=== PATIENT | female | born 1955 | race Caucasian/White ===

== ENCOUNTER 2019-06-05 07:29 | Day surgery (SDC) | payer MEDICARE, MEDICAID ==
[2019-06-03 17:03] LABS: BASOPHILS % (AUTO) 0.6 % (0-1); EOSINOPHILS # (AUTO) 0.1 X10'3 (0-0.9); EOSINOPHILS % (AUTO) 2.2 % (0-6); HEMATOCRIT 40.2 % (35.0-45.0); HEMOGLOBIN 13.8 g/dl (12.0-16.0); LYMPHOCYTES # (AUTO) 1.7 X10'3 (1.1-4.8); LYMPHOCYTES % (AUTO) 25.4 % (21-51); MEAN CORPUSCULAR HEMOGLOBIN 30.8 PG (27.0-31.0); MEAN CORPUSCULAR HGB CONC 34.4 g/dL (33.0-36.5); MEAN CORPUSCULAR VOLUME 89.5 FL (78-98); MEAN PLATELET VOLUME 8.4 FL (7.4-10.4); MONOCYTES # (AUTO) 0.6 X10'3 (0-0.9); MONOCYTES % (AUTO) 8.5 % (2-12); NEUTROPHILS # (AUTO) 4.1 X10'3 (1.8-7.7); NEUTROPHILS % (AUTO) 63.3 % (42-75); PLATELET COUNT 256 X10'3 (140-440); RED BLOOD COUNT 4.49 X10'6 (4.20-5.60); RED CELL DISTRIBUTION WIDTH 13.6 % (11.5-14.5); WHITE BLOOD COUNT 6.5 X10'3 (4.5-11.0)
[2019-06-03 17:17] LABS: ALANINE AMINOTRANSFERASE 23 U/L (12-78); ALBUMIN 3.8 G/DL (3.4-5.0); ALKALINE PHOSPHATASE 78 IU/L (46-116); ANION GAP 13 (8-16); ASPARTATE AMINO TRANSFERASE 16 U/L (10-37); BILIRUBIN,TOTAL 0.4 MG/DL (0.1-1.0); BLOOD UREA NITROGEN 20 MG/DL (7-18); BUN/CREATININE RATIO 20.4 (6.6-38.0); CALCIUM 9.3 MG/DL (8.5-10.1); CHLORIDE 109 MMOL/L (99-107); CREATININE 0.98 MG/DL (0.40-0.90); GLUCOSE 115 MG/DL (70-104); POTASSIUM 4.1 MMOL/L (3.5-5.1); SODIUM 145 MMOL/L (135-145); TOTAL CARBON DIOXIDE 22.6 MMOL/L (24-32); TOTAL PROTEIN 7.6 G/DL (6.4-8.2); eGFR 57 ML/MIN
[2019-06-03 17:24] LABS: PARTIAL THROMBOPLASTIN TIME 25 SECONDS (22-32)
[2019-06-05] VITALS (12 sets, daily range): BP systolic 96–146; BP diastolic 54–96
[~2019-06-05] VITALS: Ht 160 cm; Wt 79.0 kg
[~2019-06-05 07:29] MED LIST: ALPR-623 PO; ATE25T PO; ATOR20TA PO; DET2T PO; SERT25TA PO
[2019-06-05] MEDS ORDERED: nitroGLYCERIN 0.4mg SUBLingual tab SL PRN ×2 (08:05→15:10)
[2019-06-05] MEDS ORDERED: normal saline 1,000 ML IV SCH (08:05)
[2019-06-05] MEDS ORDERED: LORazepam 0.5 MG tablet PO PRN (08:05)
[2019-06-05] MEDS ORDERED: diphenhydrAMINE 25mg capsule PO PRN (08:05)
[2019-06-05] MEDS ORDERED: SERT25TA PO (08:29)
[2019-06-05] MEDS ORDERED: GABA-534 PO (08:29)
[2019-06-05] MEDS ORDERED: OMEP40CA13 PO (08:29)
[2019-06-05] MEDS ORDERED: LOSA25TA96 PO (08:29)
[2019-06-05] MEDS ORDERED: CARV-50 PO (08:29)
[2019-06-05] MEDS ORDERED: TRIA10.8 (08:29)
[2019-06-05] MEDS ORDERED: OXYB5TAB16 PO (08:29)
[2019-06-05] MEDS ORDERED: ALB0.5UD IH (08:29)
[2019-06-05] MEDS ORDERED: ACET-1008 PO (08:29)
[2019-06-05] MEDS ORDERED: TIZA2TAB5 PO (08:29)
[2019-06-05] MEDS ORDERED: iohexol 350 MG/ML 50ML vial IV ONE (09:58)
[2019-06-05] MEDS ORDERED: iohexol 350MG/ML 100ml bottle IV ONE (09:58)
[2019-06-05] MEDS ORDERED: fentaNYL/PF 50MCG/1 ML 2ML syringe ONE (09:58)
[2019-06-05] MEDS ORDERED: midazolam 2 mg/2 ml injection ONE (09:58)
[2019-06-05] MEDS ORDERED: LIDOcaine 1% (10mg/ml)w/preservative injection 20ml MDV ONE (09:58)
[2019-06-05] MEDS ORDERED: proCHLORperazine 10 MG/2 ml inj ONE (10:25)
[2019-06-05] MEDS ORDERED: normal saline 1000ml 1,000 ML IV SCH (15:05)
[2019-06-05] MEDS ORDERED: HYDROcodone/acetaminophen 5mg/325mg tablet PO PRN (15:05)
[2019-06-05] MEDS ORDERED: ondansetron/PF 4mg/2ml inj IV PRN (15:05)
[2019-06-05] MEDS ORDERED: HYDROcodone/acetaminophen 10/325mg tab PO PRN (15:10)
[2019-06-05] MEDS ORDERED: OXAZEpam 15mg capsule PO PRN (15:10)
[2019-06-05] MEDS ORDERED: proCHLORperazine 10 MG/2 ml inj IV PRN (15:10)
== END 2019-06-05 18:05 | disposition home or self-care (01) ==
LOC: SSTAY O 07:29
PROVIDERS: ATTEND Internal Medicine Cardiovascular Disease
DX: R94.39 Abnormal result of other cardiovascular function study (principal); I25.10 Atherosclerotic heart disease of native coronary artery without angina pectoris; E78.5 Hyperlipidemia, unspecified; J44.9 Chronic obstructive pulmonary disease, unspecified; I10 Essential (primary) hypertension; E66.9 Obesity, unspecified; Z68.30 Body mass index [BMI] 30.0-30.9, adult; Z79.01 Long term (current) use of anticoagulants; Z79.899 Other long term (current) drug therapy
CPT/HCPCS: 36415; 71046; 80053; 85025; 85610; 85730; 93005; 93458; 99152; 99153; C1769; J0780; J1644; J2001; J2250; J3010; J7030; Q0163; Q9967; A4620; A6258; C1760